=== PATIENT | male | born 1960 | race Caucasian/White ===

== ENCOUNTER → 2016-11-17 | Day surgery (SDC) | payer OTHER ==
[~2016-11-17] MED LIST: LISINOPRIL20 MG PO; MEDI-MECLIZINE25 M1 PO; NO MEDICATIONS; TYL325 PO; ZITHROMAX PO
--- NOTE | ~2016-11-17 | OR ---
Unit #: [id number] #: [id number] Patient: OCMPA SOTELO [id number] [address] [place], [place] [address] [id number] MR#: [id number] NAME: COMPA SOTELO ROOM: Date of Procedure: 11/17/2016 Admission Date: 11/17/2016 Surgeon: Aldair Graham M.D. : 1960 Attending Physician: Aldair Graham M.D. Referring Physician: Aldair Graham M.D. Primary Care Physician: Roverto Meza M.D. OPERATIVE REPORT ATTENDING PHYSICIAN Dr. Roverto Meza. PREOPERATIVE DIAGNOSIS Colorectal cancer screening in an average-risk patient. PROCEDURE PERFORMED Colonoscopy up to cecum and terminal ileum with excellent preparation and good visualization. POSTOPERATIVE DIAGNOSES Completely normal examination up to cecum and terminal ileum. The quality of the prep was excellent. The patient did not have any polyps nor any diverticula or hemorrhoids. RECOMMENDATIONS Repeat colonoscopy in 10 years. SEDATION USED MAC. DESCRIPTION OF PROCEDURE Following detailed explanation of the potential risks and complications of a colonoscopy, namely perforation, bleeding, and complication related to sedation, the patient was brought to GI lab and laid in the left lateral decubitus position. A digital rectal examination was performed which was normal. Lubricated tip of the Olympus video colonoscope was inserted through the anus and advanced under direct vision. The scope was advanced past rectosigmoid into descending colon. No diverticula were noticed in this area. The scope tip was then navigated all the way up to cecum with visualization of the ileocecal valve and the appendiceal orifice. Preparation was excellent with good visualization and photodocumentation was obtained. Last few inches of the terminal ileum were also visualized after intubation of the ileocecal valve and appeared normal. Successive segments of the colonic mucosa were examined upon withdrawal and appeared unremarkable. There being no polyps, mass lesions, AVMs, or diverticula. The patient did not have any hemorrhoids at the anal verge. The scope was then withdrawn and the patient returned to the recovery area. He tolerated the procedure without any postprocedure complications. Dictated by... Aldair Graham M.D. Unit #: [id number] #: [id number] Patient: COMPA SOTELO AK/malik TD: 11/17/2016 23:24 JOB #: [id number] OPERATIVE REPORT X Aldair Graham MD PROCEDURE OPERATIVE NOTE
== END | disposition home or self-care (01) ==
LOC: COPS 09:37
DX: Z12.11 Encounter for screening for malignant neoplasm of colon (principal); I10 Essential (primary) hypertension; Z79.899 Other long term (current) drug therapy; Z98.890 Other specified postprocedural states
CPT/HCPCS: J2250